=== PATIENT | female | born 1980 | race Caucasian/White ===

== ENCOUNTER 2021-06-29 12:51 | Emergency (ER) | payer BC ==
[~2021-06-29] VITALS: Ht 167.6 cm; Wt 72.6 kg
[~2021-06-29 12:51] MED LIST: ACETAMINOPHEN-1 EAC1 PO; AMOXICILLIN 50500 MG PO; AMOXICILLIN500 M1 PO; ANAPROX DS550 MG PO; AZITHROMYCIN 2250 MG PO; CLEOCIN HCL300 MG PO; CLONAZEPAM0.25 MG PO; DOXYCYCLINE 10100 M1 PO; DOXYCYCLINE 10100 MG PO; FLEXERIL PO; HYDROCODON-ACE1 EAC7 PO; HYDROCODON-ACE1 EACH PO; HYDROCODONE-AP1 EAC6 PO; IBUPROFEN 200200 M1 PO; IBUPROFEN 800800 M1 PO; IBUPROFEN 800800 MG PO; KLONOPIN0.5 MG PO; MEDROLDOSEPACK PO; MOBIC7.5 M1 PO; NAPROSYN250 MG PO; NOHOMEMEDICATIONS; NORCO 5-325 TA1 EACH PO; PEPTO-BISM262 MG/15; PERCOCET 5-3251 EACH PO; PREDNISONE 20 M20 M1 PO; ROBAXIN 750 MG750 M1 PO; ROBAXIN500 MG PO; SKELAXIN 800 M800 M1 PO; TRAMADOL 50 MG50 MG PO; TYLENOL325 MG PO; ULTRACET TABLE1 EACH PO; ULTRAM 50MG TAB50 MG PO
[2021-06-29] MEDS ORDERED: LISINOPRIL10 MG PO (13:09)
[2021-06-29] MEDS ORDERED: MEDROLDOSEPACK PO ×2 (13:53→14:05)
[2021-06-29] MEDS ORDERED: APAP W/CODEINE1 TA2 PO ×2 (13:53→14:05)
[2021-06-29] MEDS ORDERED: PROAIR HFA8.5 GM INH ×2 (13:57→14:05)
[2021-06-29 14:05] VITALS: BP 147/101
== END 2021-06-29 14:08 | disposition home or self-care (01) ==
LOC: M.ERS 12:51
DX: J06.9 Acute upper respiratory infection, unspecified (principal); F17.210 Nicotine dependence, cigarettes, uncomplicated; Z88.2 Allergy status to sulfonamides; Z88.5 Allergy status to narcotic agent; Z88.8 Allergy status to other drugs, medicaments and biological substances; Z98.890 Other specified postprocedural states; Z90.710 Acquired absence of both cervix and uterus